=== PATIENT | male | born 1980 | race Caucasian/White ===

== ENCOUNTER 2020-10-22 15:15 | Inpatient (IN) | payer MEDICAID ==
[~2020-10-22] VITALS: Ht 170.2 cm; Wt 74.8 kg
[2020-10-22 16:17] VITALS: BP 141/94
[2020-10-22] MEDS ORDERED: NACL 0.9% 1,000 ML IV ONE (16:45)
[2020-10-22] MEDS ORDERED: KETOROLAC 30 MG/ML VIAL IVP ONE (16:50)
[2020-10-22 17:23] LABS: HEMATOCRIT 50.2 % (36-52); HEMOGLOBIN 16.8 g/dL (12.0-18.0); MEAN CORPUSCULAR HEMOGLOBIN 28 pg (27-31); MEAN CORPUSCULAR HGB CONC 33 g/dL (33-37); MEAN CORPUSCULAR VOLUME 83.7 fL (80-94); PLATELET COUNT (AUTO) 331 K/uL (140-450); RED CELL DISTRIBUTION WIDTH 13.6 % (11.6-13.7); WHITE BLOOD COUNT (AUTO) 24.3 K/uL (4.8-10.8)
[2020-10-22 17:40] LABS: EOSINOPHILS % (MANUAL) 3 % (0-4); LYMPHOCYTES % (MANUAL) 6 % (20-46); MONOCYTES % (MANUAL) 3 % (5-12)
[2020-10-22 17:50] LABS: ANION GAP 9.8 (8-16); CARBON DIOXIDE 29.9 mmol/L (21-32); POTASSIUM 4.7 mmol/L (3.5-5.1); TOTAL BILIRUBIN 0.7 mg/dL (0.0-1.0)
[2020-10-22] MEDS: DEXTROSE 5% 1,000 ML IV SCH (20:05)
[2020-10-22] MEDS ORDERED: PIPERACILLIN/TAZOBACTAM 3.375 GM VIAL IV ONE (20:13)
[2020-10-22] MEDS ORDERED: metroNIDAZOLE 500 MG/NS PREMIX 100 ML IV ONE (20:13)
[2020-10-22] MEDS ORDERED: guaiFENesin DM 200/20 MG-10 ML 10 ML UDC PO PRN (20:20)
[2020-10-22] MEDS ORDERED: HYDROcodone/APAP 7.5/325 MG 1 TAB PO PRN (20:20)
[2020-10-22] MEDS ORDERED: POTASSIUM CHLORIDE 10 MEQ TABER PO PRN (20:20)
[2020-10-22] MEDS ORDERED: ZOLPIDEM 5 MG TAB PO PRN (20:20)
[2020-10-22] MEDS ORDERED: DOCUSATE SODIUM 100 MG GELCAP PO PRN (20:20)
[2020-10-22] MEDS ORDERED: ONDANSETRON 4 MG/2 ML VIAL IM/IVP PRN (20:20)
[2020-10-22] MEDS ORDERED: ACETAMINOPHEN 325 MG TAB PO PRN (20:20)
[2020-10-22] MEDS ORDERED: PIPERACILLIN/TAZOBACTAM 3.375 GM in DEXTROSE 5% 50 ML IV SCH (21:10)
[2020-10-22] MEDS: metroNIDAZOLE 500 MG/NS PREMIX 100 ML IV SCH (21:20)
[2020-10-22 21:45] LABS: CHOL/HDL RATIO 3.8 (1-4.5); FREE T4 (FREE THYROXINE) 0.92 ng/dL (0.76-1.46); MAGNESIUM 2.2 mg/dL (1.8-2.4); PHOSPHORUS 3.9 mg/dL (2.5-4.9); THYROID STIMULATING HORMONE 0.57 uIU/mL (0.34-3.74)
[2020-10-23] MEDS: PIPERACILLIN/TAZOBACTAM 3.375 GM in DEXTROSE 5% 50 ML IV SCH ×5 (06:00→23:38)
[2020-10-23] MEDS: DEXTROSE 5% 1,000 ML IV SCH ×2 (06:05→12:32)
[2020-10-23] MEDS ORDERED: PIPERACILLIN/TAZOBACTAM 3.375 GM VIAL IV ONE (06:51)
[2020-10-23] MEDS: metroNIDAZOLE 500 MG/NS PREMIX 100 ML IV SCH ×3 (07:36→21:17)
[2020-10-23] MEDS ORDERED: BUPIVACAINE-MPF 0.25% 30 ML VIAL INJ ONE (08:42)
[2020-10-23] MEDS ORDERED: LIDOCAINE 1% 500 MG/50 ML VIAL ONE (08:42)
[2020-10-23] MEDS ORDERED: SEVOFLURANE 250 ML BTL INH ONE (09:00)
[2020-10-23] MEDS ORDERED: MIDAZOLAM 2 MG/2 ML VIAL ONE (09:00)
[2020-10-23] MEDS ORDERED: ePHEDrine 50 MG/ML VIAL ONE (09:00)
[2020-10-23] MEDS ORDERED: GLYCOPYRROLATE 0.2 MG/ML VIAL ONE (09:00)
[2020-10-23] MEDS ORDERED: fentaNYL citrate 0.05 MG/ML VIAL ONE (09:00)
[2020-10-23] MEDS ORDERED: NEOSTIGMINE 1:1000 10 MG/10 ML VIAL ONE (09:00)
[2020-10-23] MEDS ORDERED: ROCURONIUM 50 MG/5 ML VIAL IV ONE (09:00)
[2020-10-23] MEDS ORDERED: DEXAMETHASONE 4 MG/ML VIAL ONE (09:00)
[2020-10-23] MEDS ORDERED: PROPOFOL 200 MG/20 ML VIAL IV ONE (09:00)
[2020-10-23] MEDS ORDERED: ONDANSETRON 4 MG/2 ML VIAL ONE (09:00)
[2020-10-23] MEDS ORDERED: SUCCINYLCHOLINE CHLORIDE 200 MG/10 ML VIAL IVP ONE (09:00)
[2020-10-23] MEDS ORDERED: LIDOCAINE 2% 100 MG/5 ML SYR IVP ONE (09:00)
[2020-10-23 09:23] LABS: BASOPHILS % (AUTO) 0.3 % (0.0-2.0); EOSINOPHILS # (AUTO) 0.2 K/uL (0-0.4); EOSINOPHILS % (AUTO) 1.4 % (0.0-4.0); HEMATOCRIT 47.1 % (36-52); HEMOGLOBIN 15.9 g/dL (12.0-18.0); MEAN CORPUSCULAR HEMOGLOBIN 29 pg (27-31); MEAN CORPUSCULAR HGB CONC 34 g/dL (33-37); MEAN CORPUSCULAR VOLUME 84.5 fL (80-94); MONOCYTES # (AUTO) 0.9 K/uL (0.8-1.0); MONOCYTES % (AUTO) 6.4 % (1.7-9.3); NEUTROPHILS # (AUTO) 11.2 K/uL (1.8-7.7); NEUTROPHILS % (AUTO) 77.9 % (42.2-75.2); PLATELET COUNT (AUTO) 266 K/uL (140-450); RED BLOOD CELL COUNT(AUTO) 5.57 MIL/uL (4.20-6.10); RED CELL DISTRIBUTION WIDTH 13.9 % (11.6-13.7); WHITE BLOOD COUNT (AUTO) 14.4 K/uL (4.8-10.8)
[2020-10-23] MEDS ORDERED: MEPERIDINE 25 MG/ML SYR IVP PRN (09:30)
[2020-10-23] MEDS ORDERED: ONDANSETRON 4 MG/2 ML VIAL IVP PRN (09:30)
[2020-10-23] MEDS ORDERED: HYDROmorphone 1 MG/ML AMP IVP PRN (09:30)
[2020-10-23] MEDS ORDERED: diphenhydrAMINE 50 MG/ML VIAL IVP PRN (09:30)
[2020-10-23] MEDS ORDERED: LACTATED RINGERS 1,000 ML IV SCH (09:30)
[2020-10-23 09:33] LABS: ANION GAP 11.8 (8-16); CARBON DIOXIDE 23.3 mmol/L (21-32); CREATININE 0.9 mg/dL (0.6-1.3); POTASSIUM 4.1 mmol/L (3.5-5.1)
[2020-10-23] MEDS ORDERED: HYDROmorphone 1 MG/ML AMP IM/IV PRN (11:20)
[2020-10-23 12:00] VITALS: BP 117/76
[2020-10-23] MEDS: PANTOPRAZOLE 40 MG TABEC PO SCH (12:33)
[2020-10-23 20:00] VITALS: BP 112/66
[2020-10-24] VITALS: BP 133/70
[2020-10-24] MEDS: DEXTROSE 5% 1,000 ML IV SCH (01:32)
[2020-10-24 04:00] VITALS: BP 131/85
[2020-10-24] MEDS: metroNIDAZOLE 500 MG/NS PREMIX 100 ML IV SCH (04:10)
[2020-10-24] MEDS: PIPERACILLIN/TAZOBACTAM 3.375 GM in DEXTROSE 5% 50 ML IV SCH (05:17)
[2020-10-24 08:07] LABS: T4 (THYROXINE) 5.3 ug/dL (4.5-12.0)
[2020-10-24] MEDS: PANTOPRAZOLE 40 MG TABEC PO SCH (08:27)
[2020-10-24 08:35] LABS: BASOPHILS % (AUTO) 0.1 % (0.0-2.0); EOSINOPHILS % (AUTO) 0.1 % (0.0-4.0); HEMATOCRIT 46.4 % (36-52); HEMOGLOBIN 15.5 g/dL (12.0-18.0); LYMPHOCYTES # (AUTO) 1.5 K/uL (2.0-11.5); LYMPHOCYTES % (AUTO) 9.1 % (20.5-51.1); MEAN CORPUSCULAR HEMOGLOBIN 28 pg (27-31); MEAN CORPUSCULAR HGB CONC 33 g/dL (33-37); MEAN CORPUSCULAR VOLUME 84.7 fL (80-94); MONOCYTES % (AUTO) 6.2 % (1.7-9.3); NEUTROPHILS # (AUTO) 13.9 K/uL (1.8-7.7); NEUTROPHILS % (AUTO) 84.5 % (42.2-75.2); PLATELET COUNT (AUTO) 327 K/uL (140-450); RED BLOOD CELL COUNT(AUTO) 5.48 MIL/uL (4.20-6.10); RED CELL DISTRIBUTION WIDTH 13.7 % (11.6-13.7); WHITE BLOOD COUNT (AUTO) 16.4 K/uL (4.8-10.8)
[2020-10-24 08:41] LABS: ANION GAP 11.1 (8-16); CARBON DIOXIDE 28.2 mmol/L (21-32); POTASSIUM 4.3 mmol/L (3.5-5.1)
== END 2020-10-24 14:05 | disposition home or self-care (01) | DRG 710 ==
LOC: MED 15:15 → MTU 20:09
PROVIDERS: ADMIT Family Medicine; ATTEND Family Medicine
PROC: 0DNH4ZZ Release Cecum, Percutaneous Endoscopic Approach (ICD-10-PCS; 2020-10-23)
PROC: 0DTJ4ZZ Resection of Appendix, Percutaneous Endoscopic Approach (ICD-10-PCS; principal; 2020-10-23 09:00)
DX: A41.9 Sepsis, unspecified organism (principal); K56.7 Ileus, unspecified; E87.1 Hypo-osmolality and hyponatremia; K35.33 Acute appendicitis with perforation, localized peritonitis, and gangrene, with abscess; K35.30 Acute appendicitis with localized peritonitis, without perforation or gangrene; N41.9 Inflammatory disease of prostate, unspecified; E78.5 Hyperlipidemia, unspecified; K82.9 Disease of gallbladder, unspecified; Z20.828 Contact with and (suspected) exposure to other viral communicable diseases; K82.8 Other specified diseases of gallbladder; F17.210 Nicotine dependence, cigarettes, uncomplicated
CPT/HCPCS: 36415; 74022; 80048; 80053; 82150; 83036; 83690; 83735; 83880; 84100; 84436; 84439; 84443; 84479; 84484; 85025; 85610; 85730; 87040; 87070; 87075; 87081; 87205; 96365; 99285; J0330; J1100; J2001; J2250; J2405; J2543; J2704; J2710; J3010; J3490; J7060